=== PATIENT | male | born 1990 | race Two or more races ===

== ENCOUNTER 2020-03-11 12:42 | Emergency (ER) | payer MEDICAID ==
[~2020-03-11] VITALS: Ht 170.2 cm; Wt 74.8 kg
[2020-03-11 13:20] VITALS: BP 119/76
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
[2020-03-11] MEDS ORDERED: Methocarbamol 500mg tab ORAL ONE (13:45)
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
--- NOTE | 2020-03-11 15:15 | Diagnostic Imaging Report ---
Indication: Neck pain status post injury Technique: CT cervical spine was performed utilizing automated exposure control without intravenous contrast material. Axial, sagittal and coronal images were generated. CT dose: Total DLP 535.5 mGycm; CTDI vol 20.2 mGy Comparison: None Findings: Cervical lordosis is maintained. There is no evidence of spondylolisthesis. No acute cervical spine fracture is identified. Vertebral body heights are maintained; there is no evidence of compression fracture. 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 No focus of significant bony central canal stenosis or bony foraminal narrowing. No prevertebral soft tissue fluid collection or hematoma. Thyroid unremarkable in appearance. Imaged lung apices grossly clear. Imaged intracranial structures grossly unremarkable. Visualized mastoid air cells and paranasal sinuses clear. IMPRESSION: No acute cervical spine fracture or evidence of traumatic malalignment. The CT scanner at [facility] is accredited by the [employer] and the scans are performed using protocols designed to limit radiation exposure to as low as reasonably achievable to attain images of sufficient resolution adequate for diagnostic evaluation.
[2020-03-11] MEDS ORDERED: ROBAXIN-750750 MG PO (15:16)
[2020-03-11] MEDS ORDERED: LIDODERM700 M1 TOPIC (15:16)
[2020-03-11] MEDS ORDERED: IBUPROFEN600 M1 ORAL (15:16)
--- NOTE | 2020-03-11 15:18 | Diagnostic Imaging Report ---
Indication: Neck pain status post injury Technique: CT lumbar spine was performed utilizing automated exposure control without intravenous contrast material. Axial, sagittal and coronal images were generated. CT dose: Total DLP 591 mGycm; CTDI vol 19.4 mGy Comparison: None Findings: Lumbar lordosis is maintained. There is no evidence of spondylolisthesis. There are 5 nonrib-bearing lumbar type vertebral bodies, assuming 12 paired ribs. No acute lumbar spine fracture is identified. Vertebral body heights are maintained; there is no evidence of compression fracture. No focus of significant bony central canal stenosis or bony foraminal narrowing. No prevertebral soft tissue fluid collection. Imaged portions of the abdominal aorta normal in caliber. IMPRESSION: No acute lumbar spine fracture or evidence of traumatic malalignment. The CT scanner at [facility] is accredited by the [employer] and the scans are performed using protocols designed to limit radiation exposure to as low as reasonably achievable to attain images of sufficient resolution adequate for diagnostic evaluation.
[2020-03-11 15:30] VITALS: BP 126/69
--- NOTE | 2020-03-11 15:30 | NUR ---
ED Nurse Note: Pt cleared by health care Provider for discharge. DC instructions/prescription were given and explained to pt. Pt verbalized understanding of teachings. All medical devices such as ID band removed. Pt is AAO x4, ambulatory and left with all personal belongings.
== END 2020-03-11 15:30 | disposition home or self-care (01) ==
LOC: EMR 13:45
DX: S16.1XXA Strain of muscle, fascia and tendon at neck level, initial encounter (principal); M54.5 Low back pain; V47.6XXA Car passenger injured in collision with fixed or stationary object in traffic accident, initial encounter; Y92.411 Interstate highway as the place of occurrence of the external cause
CPT/HCPCS: 72125; 72131; Z7502; 99284